=== PATIENT | female | born 2000 | race Caucasian/White ===

== ENCOUNTER 2021-07-02 10:46 | Emergency (ER) | payer OTHER ==
[~2021-07-02] VITALS: Ht 167.6 cm; Wt 69.4 kg
[2021-07-02] MEDS ORDERED: AMOX875T2 (11:02)
[2021-07-02] MEDS ORDERED: FLUC150T9 (11:02)
[2021-07-02] MEDS ORDERED: NAPR-885 (11:02)
[2021-07-02 11:54] LABS: HEMATOCRIT 41.7 % (36.0-47.0); HEMOGLOBIN 13.8 g/dl (12.0-15.5); MEAN CORPUSCULAR HEMOGLOBIN 30.1 pg (27.0-33.0); MEAN CORPUSCULAR HGB CONC 33.1 g/dl (32.0-36.5); MEAN CORPUSCULAR VOLUME 90.8 fl (80.0-96.0); PLATELET COUNT, AUTOMATED 190 10^3/uL (150-450); RED BLOOD COUNT 4.59 10^6/uL (4.00-5.40); WHITE BLOOD COUNT 7.9 10^3/uL (4.0-10.0)
[2021-07-02 12:19] LABS: ATYPICAL LYMPH 3 % (0-5); EOSINOPHILS 2 % (0-3); LYMPHOCYTES 22 % (16-44); MONOCYTES 13 % (0-5); NEUTROPHILS 60 % (28-66)
[2021-07-02 12:20] LABS: PLATELET ESTIMATE NORMAL (NORMAL)
[2021-07-02] MEDS ORDERED: NS 1,000 ML IV ONE (13:25)
[2021-07-02] MEDS ORDERED: dexameTHASONE 20MG/5ML VIAL (J1100 PER 1MG) IV ONE (13:25)
[2021-07-02] MEDS ORDERED: AMPICILLIN SOD/SULBACTAM SOD 3 GM in D5W MINI-BAG PLUS 100 ML IV ONE (13:25)
[2021-07-02] MEDS ORDERED: ISOVUE-370 76% 100ML VIAL As Ordered ONE (13:30)
[2021-07-02 14:04] LABS: ERYTHROCYTE SEDIMENTATION RATE 35 mm/hr (0-20)
[2021-07-02 14:29] LABS: MONO REFLEX EBV COMP NEGATIVE (NEGATIVE)
[2021-07-02] MEDS ORDERED: LIDO2SOL17 PO (15:30)
[2021-07-02] MEDS ORDERED: DECA4TAB PO (15:30)
[2021-07-02 15:42] VITALS: BP 114/66
[2021-07-03 17:09] LABS: EBV AB TO NUCLEAR ANTIGEN >600.0 U/mL (0.0-17.9); EBV VIRAL CAPSID AG IgG >600.0 U/mL (0.0-17.9); EBV VIRAL CAPSID AG IgM <36.0 U/mL (0.0-35.9)
== END 2021-07-02 15:44 | disposition home or self-care (01) ==
LOC: M ED 10:46
DX: J03.90 Acute tonsillitis, unspecified (principal); R50.9 Fever, unspecified; Z79.899 Other long term (current) drug therapy
CPT/HCPCS: 70491; 80047; 83605; 84702; 85025; 85652; 86140; 86308; 86664; 86665; 87040; 87070; 96365; 96375; 99283; J1100; Q9967

== ENCOUNTER 2022-02-17 04:56 | Emergency (ER) | payer OTHER ==
[~2022-02-17] VITALS: Ht 167.6 cm; Wt 68.9 kg
[~2022-02-17 04:56] MED LIST: AMOX875T2; DECA4TAB PO; FLUC150T9; LIDO2SOL17 PO; NAPR-885
[2022-02-17 06:51] LABS: URINE PREG TEST NEGATIVE (NEGATIVE)
[2022-02-17] MEDS ORDERED: NITR1CAP11 PO (07:09)
[2022-02-17] MEDS ORDERED: PHEN-372 PO (07:09)
[2022-02-17] MEDS ORDERED: PHENAZOPYRIDINE 100 MG TAB PO ONE ×2 (07:10)
[2022-02-17] MEDS ORDERED: NITROFURANTOIN (MACROBID) 100 MG CAP PO ONE (07:10)
[2022-02-17 07:30] VITALS: BP 134/80
[2022-02-17 08:54] LABS: GC DNA AMPLIFICATION NEGATIVE (NEGATIVE)
== END 2022-02-17 07:32 | disposition home or self-care (01) ==
LOC: M ED 04:56
DX: N39.0 Urinary tract infection, site not specified (principal); Z79.899 Other long term (current) drug therapy

== ENCOUNTER 2022-02-24 06:37 | Emergency (ER) | payer OTHER ==
[~2022-02-24] VITALS: Ht 167.6 cm; Wt 65.9 kg
[~2022-02-24 06:37] MED LIST changes: +NITR1CAP11 PO; +PHEN-372 PO
[2022-02-24] MEDS ORDERED: ONDA4TAB6 PO (07:28)
[2022-02-24] MEDS ORDERED: PYRI1TAB5 PO (07:28)
[2022-02-24] MEDS ORDERED: BACT800T5 PO (07:28)
[2022-02-24] MEDS ORDERED: DIFL150T PO (07:28)
[2022-02-24 07:34] VITALS: BP 110/71
== END 2022-02-24 07:47 | disposition home or self-care (01) ==
LOC: M ED 06:37
DX: N39.0 Urinary tract infection, site not specified (principal)

== ENCOUNTER → 2022-07-07 | Outpatient (CLI) | payer OTHER ==
[~2022-07-07] MED LIST changes: +BACT800T5 PO; +DIFL150T PO; +LIDO15SO4 PO; -LIDO2SOL17 PO; +ONDA4TAB6 PO; +PYRI1TAB5 PO
== END ==
LOC: M RAD 12:42
PROVIDERS: ATTEND Physician Assistant Medical
DX: N83.209 Unspecified ovarian cyst, unspecified side (principal)

== ENCOUNTER → 2022-09-15 | Outpatient (CLI) | payer OTHER ==
[~2022-09-15] MED LIST changes: +LIDO15SO PO; -LIDO15SO4 PO
== END ==
LOC: M WHC 13:52
PROVIDERS: ATTEND Physician Assistant Medical
DX: N83.291 Other ovarian cyst, right side (principal)

== ENCOUNTER → 2023-04-21 | Outpatient (CLI) | payer OTHER ==
[2023-04-21 19:03] LABS: HEMOGLOBIN A1c 4.8 % (4.0-6.0)
== END ==
LOC: M PLALAB 15:15
PROVIDERS: ATTEND Nurse Practitioner Family
DX: N83.202 Unspecified ovarian cyst, left side (principal)

== ENCOUNTER → 2023-06-28 | Outpatient (CLI) | payer OTHER | LOC: M WHC 09:58 | PROVIDERS: ATTEND Nurse Practitioner Family | DX: N83.202 Unspecified ovarian cyst, left side (principal); N83.201 Unspecified ovarian cyst, right side ==

== ENCOUNTER 2023-09-14 05:50 | Inpatient (IN) | payer MEDICARE, OTHER ==
[~2023-09-14] VITALS: Ht 170.2 cm; Wt 67.0 kg
[~2023-09-14 05:50] MED LIST changes: -LIDO15SO PO; +LIDO15SO8 PO
[2023-09-14 06:58] LABS: BASO % 0.4 % (0.0-1.0); EOS # 0.1 10^3/uL (0.0-0.5); EOS % 1.2 % (0.0-3.0); HEMATOCRIT 38.7 % (36.0-47.0); HEMOGLOBIN 13.1 g/dl (12.0-15.5); LYMPH # 1.4 10^3/uL (1.5-5.0); LYMPH % 27.3 % (24.0-44.0); MEAN CORPUSCULAR HEMOGLOBIN 30.7 pg (27.0-33.0); MEAN CORPUSCULAR HGB CONC 33.9 g/dl (32.0-36.5); MEAN CORPUSCULAR VOLUME 90.6 fl (80.0-96.0); MONO # 0.4 10^3/uL (0.0-0.8); MONO % 8.3 % (2.0-8.0); NEUTROPHILS # 3.2 10^3/uL (1.5-8.5); NEUTROPHILS % 62.6 % (36.0-66.0); PLATELET COUNT, AUTOMATED 247 10^3/uL (150-450); RED BLOOD COUNT 4.27 10^6/uL (4.00-5.40); WHITE BLOOD COUNT 5.1 10^3/uL (4.0-10.0)
[2023-09-14 07:16] LABS: HCG, SERUM QUALITATIVE NEGATIVE (NEGATIVE)
[2023-09-14 07:23] LABS: ETHYL ALCOHOL (ETHANOL) < 0.003 % (0.000-0.010)
[2023-09-14 07:24] LABS: ALBUMIN 3.1 G/DL (3.2-5.2); ALKALINE PHOSPHATASE 52 U/L (46-116); ALT/SGPT 13 U/L (7.0-40); AST/SGOT 19 U/L (<34); BILIRUBIN,DIRECT < 0.1 MG/DL (<0.4); BILIRUBIN,TOTAL 0.3 MG/DL (0.3-1.2); BLOOD UREA NITROGEN 13 MG/DL (9-23); CALCIUM LEVEL 8.5 MG/DL (8.5-10.1); CARBON DIOXIDE LEVEL 24 MMOL/L (20-31); CHLORIDE LEVEL 108 MMOL/L (98-107); CREATININE FOR GFR 0.63 MG/DL (0.55-1.30); GLOMERULAR FILTRATION RATE > 60.0 (>60); GLUCOSE, FASTING 97 MG/DL (60-100); POTASSIUM SERUM 4.4 MMOL/L (3.5-5.1); SALICYLATE LEVEL < 3.0 MG/DL (<30); SODIUM LEVEL 139 MMOL/L (136-145); TOTAL PROTEIN 6.6 G/DL (5.7-8.2)
[2023-09-14 07:26] LABS: THYROID STIMULATING HORMONE 0.624 uIU/ML (0.55-4.78)
[2023-09-14] MEDS ORDERED: HOME MED LIST COMPLETE! XX SCH (07:55)
[2023-09-14] MEDS ORDERED: IBUP200C27 PO (08:15)
[2023-09-14] MEDS ORDERED: VENL-102 PO (08:15)
[2023-09-14] MEDS ORDERED: TRAZ-257 PO (08:15)
[2023-09-14] MEDS ORDERED: HYDR-3363 PO ×2 (08:15)
[2023-09-14] MEDS ORDERED: DROS1TAB2 PO (08:15)
[2023-09-14] MEDS ORDERED: VENL-115 PO (08:15)
[2023-09-14 08:53] LABS: AMPHETAMINES LEVEL URINE NEGATIVE (NEGATIVE); BARBITURATES URINE NEGATIVE (NEGATIVE); BENZODIAZEPINES URINE NEGATIVE (NEGATIVE); CANNABINOIDS URINE NEGATIVE (NEGATIVE); COCAINE METABOLITE URINE NEGATIVE (NEGATIVE); METHADONE URINE NEGATIVE (NEGATIVE); OPIATES URINE NEGATIVE (NEGATIVE); PHENCYCLIDINE URINE NEGATIVE (NEGATIVE)
[2023-09-14] MEDS ORDERED: IBUPROFEN 400MG TAB PO PRN (09:40)
[2023-09-14] MEDS: ETHINYL ESTRADIOL PO SCH (14:18)
[2023-09-14] MEDS: DROSPIRENONE PO SCH (14:18)
[2023-09-14] MEDS ORDERED: MAALOX 30 ML SUSP *UDC PO PRN (14:25)
[2023-09-14] MEDS ORDERED: MOM 30ML SUSPENSION UDC PO PRN (14:25)
[2023-09-14] MEDS ORDERED: traZODone 50 MG TAB PO PRN (14:25)
[2023-09-14] MEDS ORDERED: diphenhydrAMINE 25MG CAP PO PRN (14:25)
[2023-09-14] MEDS ORDERED: ACETAMINOPHEN TAB 650MG DOSE (2X325MG) PO PRN (14:25)
[2023-09-14 15:20] VITALS: BP 131/75; TEMP 99.2; O2SAT 100
[2023-09-15 06:05] VITALS: BP 122/66; TEMP 97.7; O2SAT 100
[2023-09-15] MEDS ORDERED: ENTER DRUG NAME HERE (PATIENT'S OWN MED) PO SCH ×2 (09:00)
[2023-09-15] MEDS ORDERED: VENLAFAXINE **XR** 75MG CAPSULE PO SCH (09:00)
[2023-09-15] MEDS: VENLAFAXINE **XR** 37.5 MG CAPSULE PO SCH (10:25)
[2023-09-15] MEDS: VENLAFAXINE **XR** 75MG CAPSULE PO SCH (10:25)
[2023-09-15] MEDS: DROSPIRENONE PO SCH (10:26)
[2023-09-15] MEDS: ETHINYL ESTRADIOL PO SCH (10:26)
[2023-09-15] MEDS: ONDANSETRON 4MG ORAL DISINTEGRATING TAB PO PRN (11:09)
[2023-09-15] MEDS: ENTER DRUG NAME HERE (PATIENT'S OWN MED) PO SCH (13:41)
[2023-09-15 17:50] VITALS: BP 135/80; TEMP 97.8; O2SAT 100
[2023-09-15] MEDS: traZODone 100 MG TAB PO SCH (21:11)
[2023-09-16 06:24] VITALS: BP 102/54; TEMP 97.5
[2023-09-16] MEDS: IBUPROFEN 400MG TAB PO PRN (14:17)
[2023-09-16 16:04] VITALS: BP 111/65; TEMP 98.2; O2SAT 99
[2023-09-17 06:24] VITALS: BP 101/61; TEMP 98.6; O2SAT 98
[2023-09-17] MEDS ORDERED: lamoTRIgine 25MG TAB PO SCH (09:00)
[2023-09-17 15:35] VITALS: BP 111/56; TEMP 98; O2SAT 100
[2023-09-18 06:23] VITALS: BP 90/58; TEMP 98.1; O2SAT 98
[2023-09-18 15:34] VITALS: BP 110/56; TEMP 98.4; O2SAT 100
[2023-09-19 06:48] VITALS: BP 96/51; TEMP 98.2; O2SAT 100
== END 2023-09-19 11:32 | disposition home or self-care (01) | DRG 754 ==
LOC: M ED 05:50 → M ED INP 14:23 → M PSY 15:36
PROVIDERS: ADMIT Student in an Organized Health Care Education/Training Program; ATTEND Student in an Organized Health Care Education/Training Program
DX: F32.9 Major depressive disorder, single episode, unspecified (principal); R45.851 Suicidal ideations; F41.1 Generalized anxiety disorder; F60.3 Borderline personality disorder; Z79.899 Other long term (current) drug therapy; Z62.812 Personal history of neglect in childhood; Z11.52 Encounter for screening for COVID-19; Z91.52 Personal history of nonsuicidal self-harm

== ENCOUNTER 2024-01-11 10:48 | Emergency (ER) | payer MEDICARE, OTHER ==
[~2024-01-11 10:48] MED LIST changes: +DROS1TAB2 PO; +HYDR-3363 PO; +IBUP200C27 PO; +NITR100C3 PO; -NITR1CAP11 PO; +ONDA-282 PO; -ONDA4TAB6 PO; +TRAZ-257 PO; +VENL-102 PO; +VENL-115 PO
[2024-01-11] MEDS ORDERED: HOME MED LIST COMPLETE! XX SCH (13:45)
[2024-01-11 15:19] VITALS: BP 123/59; TEMP 98.8; O2SAT 100
== END 2024-01-11 15:21 | disposition home or self-care (01) ==
LOC: M ED 10:48
DX: F43.0 Acute stress reaction (principal); Z79.1 Long term (current) use of non-steroidal anti-inflammatories (NSAID); Z79.899 Other long term (current) drug therapy

== ENCOUNTER → 2024-08-17 | Outpatient (CLI) | payer OTHER ==
[2024-08-17 17:34] LABS: BASO % 0.4 % (0.0-1.0); EOS # 0.1 10^3/uL (0.0-0.5); EOS % 1.4 % (0.0-3.0); HEMOGLOBIN 14.5 g/dl (12.0-15.5); LYMPH # 2.6 10^3/uL (1.5-5.0); LYMPH % 34.6 % (24.0-44.0); MONO # 0.7 10^3/uL (0.0-0.8); MONO % 9.4 % (2.0-8.0); NEUTROPHILS # 4.1 10^3/uL (1.5-8.5); NEUTROPHILS % 53.9 % (36.0-66.0); PLATELET COUNT, AUTOMATED 295 10^3/uL (150-450); WHITE BLOOD COUNT 7.6 10^3/uL (4.0-10.0)
[2024-08-17 17:50] LABS: ALBUMIN 3.5 G/DL (3.2-5.2); ALKALINE PHOSPHATASE 90 U/L (35-104); ALT/SGPT 11 U/L (7.0-40); AST/SGOT 13 U/L (<34); BILIRUBIN,TOTAL 0.3 MG/DL (0.3-1.2); BLOOD UREA NITROGEN 14 MG/DL (9-23); CALCIUM LEVEL 9.4 MG/DL (8.5-10.1); CARBON DIOXIDE LEVEL 26 MMOL/L (20-31); CHLORIDE LEVEL 106 MMOL/L (98-107); CHOLESTEROL LEVEL 210 MG/DL (<200); CHOLESTEROL RISK RATIO 2.91 (<5); CREATININE FOR GFR 0.69 MG/DL (0.55-1.30); GLOMERULAR FILTRATION RATE > 60.0 (>60); GLUCOSE, FASTING 76 MG/DL (60-100); LDL CHOLESTEROL 116.6 MG/DL (<100); POTASSIUM SERUM 4.5 MMOL/L (3.5-5.1); SODIUM LEVEL 140 MMOL/L (136-145); THYROID STIMULATING HORMONE 0.708 uIU/ML (0.55-4.78); TOTAL 25(OH) VITAMIN D 27.1 NG/ML (20.0-100.0); TOTAL PROTEIN 7.7 G/DL (5.7-8.2); TRIGLYCERIDES LEVEL 107 MG/DL (<150)
[2024-08-17 17:52] LABS: FREE T4 0.97 NG/DL (0.89-1.76)
== END ==
LOC: M PLALAB 14:31
PROVIDERS: ATTEND Nurse Practitioner Family
DX: E55.9 Vitamin D deficiency, unspecified (principal); R19.8 Other specified symptoms and signs involving the digestive system and abdomen; R53.83 Other fatigue; Z13.220 Encounter for screening for lipoid disorders

== ENCOUNTER → 2025-02-06 | Outpatient (REF) | payer OTHER, MEDICARE | LOC: M SFHCWAGY 17:44 | PROVIDERS: ATTEND Nurse Practitioner Family | DX: Z12.4 Encounter for screening for malignant neoplasm of cervix (principal) ==